=== PATIENT | female | born 2005 | race Two or more races ===

== ENCOUNTER 2024-02-15 10:04 | Emergency (ER) | payer OTHER ==
[~2024-02-15] VITALS: Ht 152.4 cm; Wt 40.8 kg
[2024-02-15] MEDS ORDERED: KETOROLAC TROMETHAMINE 30 MG VIAL IM ONE (11:00)
[2024-02-15] MEDS ORDERED: HYDROCORTISONE SODIUM SUCC/PF 100 MG VIAL IM ONE (11:00)
== END 2024-02-15 12:05 | disposition home or self-care (01) ==
LOC: ER 10:05 → EMR PED 10:42
DX: M54.9 Dorsalgia, unspecified (principal)
CPT/HCPCS: 72110; 96372; 99283; J1885; J3490